=== PATIENT | female | born 1970 | race Caucasian/White ===

== ENCOUNTER → 2016-12-05 | Outpatient (CLI) | payer BC | END | disposition home or self-care (01) | LOC: C.LAB1850 14:37 | PROVIDERS: ATTEND Obstetrics & Gynecology | DX: Z11.3 Encounter for screening for infections with a predominantly sexual mode of transmission (principal) ==

== ENCOUNTER → 2016-12-05 | Outpatient (CLI) | payer BC ==
[2016-12-10 23:49] LABS: CHLAMYDIA TRACH RNA*** NOT DETECTED (NOT DETECTED); GC (NEIS GONORRHOEAE)RNA** NOT DETECTED (NOT DETECTED); TRICHOMONAS VAGINALIS RNA** NOT DETECTED (NOT DETECTED)
== END | disposition home or self-care (01) ==
LOC: C.LABSPEC 17:55
PROVIDERS: ATTEND Obstetrics & Gynecology
DX: Z11.3 Encounter for screening for infections with a predominantly sexual mode of transmission (principal)

== ENCOUNTER → 2016-12-12 | Outpatient (CLI) | payer BC ==
--- NOTE | 2016-12-12 15:10 | MAMMOGRAPHY REPORT ---
BILATERAL DIGITAL DIAGNOSTIC MAMMOGRAM TOMOSYNTHESIS WITH CAD AND TARGETED RIGHT ULTRASOUND: 12/13/19 17 TECHNIQUE: Bilateral breast tomosynthesis in addition to standard 2D mammography was performed. Curr ent study was also evaluated with a Computer Aided Detection (CAD) system. COMPARISON: Comparison is made to exams dated: 07/27/2015 mammogram, 12/21/2013 ultrasound, 12/16/2013 m ammogram, 12/09/2012 mammogram - , and 01/04/2009. BREAST COMPOSITION: The tissue of both breasts is heterogeneously dense, which may obscure small ma sses. FINDINGS: A triangular skin palpable marker overlies the upper outer quadrant of the right breast, d enoting the palpable lump pointed out by the patient. No new suspicious mass, architectural distort ion or cluster of microcalcifications is seen bilaterally. Targeted ultrasound was performed in the area of lump pointed out by the patient, in the approximate 8:00 to 9:00 right breast, 7 cm from the nipple. On palpation, there is a soft mobile mass approxi mately 1 cm. However, I felt an additional soft mobile mass slightly closer to the nipple in the sa me axis. Therefore scanning was performed from the approximate 7:00 through 10:00 axes of the right breast. No suspicious solid or cystic mass is seen. Correlating with the possible lump in the 8:0 0 right breast is a superficial parallel echogenic circumscribed mass measuring 4.3 x 2.2 x 3.7 mm r epresenting a benign lipoma. Another small echogenic lipoma is seen in the 9:00 right breast measur ing 3.1 x 2.7 mm. IMPRESSION: ACR BI-RADS CATEGORY 2: BENIGN, TARGETED ULTRASOUND ACR BI-RADS CATEGORY 2: BENIGN 1. No suspicious mammographic or targeted sonographic abdomen normality in the area of palpable lum p in the lateral right breast, identified by the patient's physician. Therefore, clinical follow-up is recommended, as biopsy of a clinically suspicious mass should not be precluded by negative imagi ng. 2. 2 small superficial lipomas are seen in the 8:00 and 9:00 axes of the right breast on ultrasound , which are benign. 3. Stable bilateral mammograms, without mammographic evidence of malignancy. Recommend routine krystal mography in one year. Approximately 10% of breast cancers are not detected with mammography. A negative mammographic repor t should not delay biopsy if a clinically suggestive mass is present. Rolanda Green M.D. ay/:12/12/2016 14:21:14 [employer] Worker: Amna GOLDEN(Nicolas)(Alex), letter sent: Normal 1/2 BI-RADS Code: ACR BI-RADS Category 2: Benign Ultrasound BI-RADS: ACR BI-RADS Category 2: Benign
== END | disposition home or self-care (01) ==
LOC: C.MAMM 13:33
PROVIDERS: ATTEND Obstetrics & Gynecology
DX: N63 Unspecified lump in breast (principal); D17.79 Benign lipomatous neoplasm of other sites